=== PATIENT | male | born 1940 | race Caucasian/White ===

== ENCOUNTER 2019-11-03 03:17 | Emergency (ER) | payer OTHER, BC ==
[~2019-11-03] VITALS: Ht 190.5 cm; Wt 83.9 kg
[~2019-11-03 03:17] MED LIST: ASPIRIN EC81 M1 OR; FISH OIL PO; FISHOIL OR; GLUCOSAMINE CH1 EAC7 OR; GLUCOSAMINE HCL PO; IBUPROFEN 200200 M1 PO; LORTAB 5 MG/5001 TA1; LORTAB 5 MG/5001 TA1 PO; NIACIN 500 MG500 M1 OR; NORCO 5-325 TA1 EACH PO; THERA-M CAPLET1 EACH OR
[2019-11-03 03:18] VITALS: BP 174/74
== END 2019-11-03 04:15 | disposition home or self-care (01) ==
LOC: ER 03:17
DX: I83.891 Varicose veins of right lower extremity with other complications (principal); Z98.890 Other specified postprocedural states; Z79.899 Other long term (current) drug therapy; Z79.82 Long term (current) use of aspirin

== ENCOUNTER 2021-01-01 05:58 | Inpatient (IN) | payer OTHER, BC ==
[~2021-01-01] VITALS: Ht 188 cm; Wt 96.2 kg
--- NOTE | ~2021-01-01 | HC ---
[facility] [place] [address] CONSULTATION Name: MINGO DE OLIVEIRA Room #: 361-P ADM IN M.R.#: [id number] Admission: 01/01/21 Attend Phys: Mookie Vyas MD Discharge: Date of : 36 Report #: [id number] THIS REPORT FOR: cc: Dinh Salcedo MD, Rene P. MD Khosla, Parveen K. MD ~ DATE OF SERVICE: 01/01/2021 HISTORY OF PRESENT ILLNESS: This is an 80-year-old male patient who was evaluated by me for weakness in the right hand. This happened yesterday. Apparently, it has resolved. He also had some symptoms in the right lower extremity and that also has resolved. He had some balance issues and that he does not know how is it. In general, this patient has significantly improved. Review of systems is negative for any stroke in the past. He was one time taking an aspirin, but I do not think he has been doing it on a regular basis. He does have a history of hypertension. In the Emergency Room, it looks like he had a CT scan of the head as well as CT angiogram, which showed some disease on the left side. MRI showed that he had couple of strokes on the left side, which will correlate with his symptoms on the right side. His vessels are mostly clean. Nurses tell me that he is running some what they think is PVC. REVIEW OF SYSTEMS: A 14-point review of system was carried out in this patient and is as summarized above. PAST MEDICAL HISTORY: Negative for stroke. FAMILY HISTORY: Unremarkable. SOCIAL HISTORY: He does drink alcohol. PHYSICAL EXAMINATION: NEUROLOGIC: The patient's examination indicate that he is alert and responsive. His memory is somewhat poor, but his speech looks intact. Cranial nerve examination 2-12, I do not think shows much problem. He appeared to have recovered the deficit from the right side because he did reasonably well with strength checking on the right side. His operations manager/coordinator is good and his strength looks symmetrical and normal. His position sense is intact. Apparently, he was not able to do [id number] before, but he was able to do it when I did it. I could not look at the patient's fundus. CARDIORESPIRATORY: Examinations appear unremarkable. VITAL SIGNS: Blood pressure is 148/71, temperature is 98.4. LABORATORY DATA: CT angiography and MRI was reviewed. MRI showed pretty extensive even baseline disease. IMPRESSION AND PLAN: This patient has 2 acute cerebrovascular accidents. MRI [facility] [address] [place] [address] CONSULTATION Name: MINGO DE OLIVEIRA Room #: 361-P [facility] IN .R.#: [id number] Admission: 01/01/21 Attend Phys: Mookie Vyas MD Discharge: Date of : 36 Report #: [id number] demonstrate a pretty extensive disease. He does have some memory deficits. 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 I will check TSH and vitamin B12. I will use dual antiplatelet therapy on him because of the stroke. He is presently just on aspirin, so I will just add Plavix. He needs some extensive workup because of disease on the MRI is pretty prominent. I ordered some of the workup for tomorrow, but from neurological perspective, he should be able to go home pretty soon. He does need an echocardiogram with a bubble study and that is already ordered. Thank you very much for this referral. I spent more than 50 minutes of time taking care of this patient today and majority was spent counseling and coordinating. By: 1642 11 Morales Abdi MD /nt
[2021-01-01 06:03] VITALS: BP 198/127
[2021-01-01 06:31] LABS: ABSOLUTE NEUTROPHILS 2.9 thou/uL (1.4-8.2); EOSINOPHILS 4.5 % (0.0-3.0); HEMATOCRIT 41.4 % (42.0-52.0); HEMOGLOBIN 14.3 gm/dL (14.0-18.0); LYMPHOCYTES 35.4 % (24.0-44.0); MCH 34.3 pg (26.0-34.0); MCHC 34.6 g/dL (28.0-37.0); MCV 99.2 fL (80.0-100.0); MONOCYTES 9.9 % (1.0-8.0); PLATELET COUNT 145 thou/uL (150-400); POLYS 49.2 % (36.0-66.0); RBC 4.18 mil/uL (4.50-6.00); RDW 12.7 % (10.5-14.5)
[2021-01-01 06:42] LABS: CALCIUM 8.8 mg/dL (8.5-10.1); CREATININE 0.9 mg/dL (0.7-1.3)
[2021-01-01 06:52] LABS: ALBUMIN 3.7 g/dL (3.4-5.0); TOTAL BILIRUBIN 0.7 mg/dL (0.2-1.0); TOTAL PROTEIN 6.2 g/dL (6.4-8.2)
[2021-01-01 06:54] LABS: APTT 28.8 Seconds (24.5-32.8); INR 1.02; PROTIME 11.1 Seconds (10.5-12.1)
--- NOTE | 2021-01-01 07:08 | EKG ---
[address] [place] [address] [facility] [place] [address] ELECTROCARDIOGRAM REPORT Name: MINGO DE OLIVEIRA Room #: REG JOSSY Ramirez#: [id number] Admission: 01/01/21 Attend Phys: Discharge: Date of : 36 Report #: [id number] [facility] ED Test Date: 2021-01-01 Test Time: 06:11:57 Pat Name: MINGO DE OLIVEIRA Department: Room: Gender: M Occupational Therapist'S Assistant: RICCO : 1940 Requested By: Alexi Alexis Order Number: [id number] MD: Sourav Pedro Measurements Intervals [place] Rate: 56 P: 65 MO: 213 QRS: -40 QRSD: 109 T: 44 QT: 471 QTc: 455 Interpretive Statements Sinus rhythm Borderline prolonged MO interval Consider left atrial enlargement Baseline wander in lead(s) V1 Compared to ECG 02/13/2016 07:42:31 Sinus bradycardia no longer present Electronically Signed On 01-01-2021 7:08:41 CDT by Sourav Pedro [email or web address] <ELECTRONICALLY SIGNED> By: Sourav Pedro MD, [facility] 01/01/21 0708 0 0 Sourav Pedro MD, FACC /EPI
--- NOTE | 2021-01-01 07:09 | EKG ---
[address] [place] [employer] [address] ELECTROCARDIOGRAM REPORT Name: MINGO DE OLIVEIRA Room #: REG JOSSY Ramirez#: [id number] Admission: 01/01/21 Attend Phys: Discharge: Date of : 36 Report #: [id number] [facility] ED Test Date: 2021-01-01 Test Time: 06:30:29 Pat Name: MINGO DE OLIVEIRA Department: Room: Gender: M Fitness Trainer: peyton : 1940 Requested By: Alexi Alexis Order Number: [id number] MD: Sourav Pedro Measurements Intervals [place] Rate: 59 P: 66 AL: 216 QRS: -40 QRSD: 106 T: 55 QT: 425 QTc: 421 Interpretive Statements Sinus rhythm Atrial premature complexes Borderline prolonged AL interval Left anterior fascicular block Abnormal R-wave progression, early transition Baseline wander in lead(s) V6 Compared to ECG 01/01/2021 06:11:57 Atrial premature complex(es) now present Myocardial infarct finding no longer present Electronically Signed On 01-01-2021 7:08:47 CDT by Sourav Pedro [email or web address] <ELECTRONICALLY SIGNED> By: Sourav Pedro MD, FACC 01/01/21 0708 9 9 Sourav Pedro MD, FAC /EPI
--- NOTE | 2021-01-01 07:15 | NUR ---
TOOK OVER CARE FROM KOFI ALBRIGHT AT THIS TIME
[2021-01-01 10:43] VITALS: BP 152/75
--- NOTE | 2021-01-01 10:44 | NUR ---
HANDOFF TOOL SENT AT THIS TIME
[2021-01-01 11:00] VITALS: BP 163/82
[2021-01-01 11:02] VITALS: BP 142/61
--- NOTE | 2021-01-01 12:05 | NUR ---
ADMIT: PT ARRIVED TO UNIT APPROX 1100 VIA WC FROM ER. PT A&OX4, STANDS INDEPENDENTLY, GAIT SLIGHTLY UNSTABLE. PT ABLE TO ANSWER ALL QUESTIONS APPROPRIATELY, MRI QUESTIONS ANSWERED AND RECORDED. ST IN TO EVAL PT SWALLOWING. DEFICITS OBSERVED BY THIS RN: R HAND WRITING ABILITY & POSSIBLE SPEECH SLUR AT TIMES. CONCERN FOR SLIGHT SPEECH SLUR RELAYED TO ST. WILL CONTINUE POC AND CONTACT PHYSICIAN NEEDED.
[2021-01-01] MEDS ORDERED: SUPER THERAVIT1 EACH PO (13:23)
[2021-01-01] MEDS ORDERED: NIACIN50 MG PO (13:24)
[2021-01-01] MEDS ORDERED: VITAMIN C500 M1 PO (13:24)
[2021-01-01] MEDS ORDERED: GLUCOSAMINE1000 MG PO (13:25)
[2021-01-01 16:00] VITALS: BP 148/71
[2021-01-01 19:22] VITALS: BP 137/69
--- NOTE | 2021-01-02 00:47 | NUR ---
PT WATCHING TV VISITED WITH FRIEND. [facility]. PT PROVIDED HS SNACK. INDEP WITH ADLS. CALLS FOR ASSIST.
[2021-01-02 01:06] LABS: GLYCOHEMOGLOBIN (HGB A1C) 5.5 % (4.8-5.6)
[2021-01-02 04:57] VITALS: BP 139/73
[2021-01-02 06:22] LABS: CHOLESTEROL 119 mg/dL (<200); HDL CHOLESTEROL 31 mg/dL (>40); LDL CHOLESTEROL 63 mg/dL (<100); TC:HDL 3.8 Ratio (Not establshd); TRIGLYCERIDE 128 mg/dL (<150); VLDL 26 mg/dL (<40)
[2021-01-02 06:30] LABS: SERUM ASSESSMENT Clear
[2021-01-02 07:57] VITALS: BP 164/76
--- NOTE | 2021-01-02 09:21 | TEE ---
[facility] [place] [address] TRANSESOPHAGEAL ECHOCARDIOGRAM Name: MINGO DE OLIVEIRA Room #: 361-P ADM IN M.R.#: [id number] Admission: 01/01/21 Attend Phys: Mookie Vyas MD Discharge: Date of : 36 Report #: [id number] THIS REPORT FOR: cc: Dinh Salcedo MD, Rene P. MD Santiago, Patrick MD [facility] ~ APPROVED REPORT Study performed: 01/02/2021 08:23:03 EXAM: Comprehensive 2D, Doppler, and color-flow Echocardiogram Patient Location: In-Patient Room #: 361 Status: routine BSA: 2.23 HR: 75 bpm BP: 107/59 mmHg Rhythm: NSR Other Information Study Quality: Good Indications CVA/TIA Echo Enhancing Agent Indication: Rule out Shunt Agent(s) / Amount(s) Used: Agitated Saline 7 cc Procedure After obtaining informed consent, patient underwent transesophageal echo in the [employer]. Type of Sedation : Conscious Sedation Sedation was administered by Soraya Ahumada RN. Sedation start time: 829 Case end Time: 834 Sedation was achieved intravenously with: Versed (3.5 mg) Fentanyl (50 mcg) Transesophageal probe was inserted and advanced into esophagus without difficulty by Sourav Pedro MD. Echo enhancement indication: R/O Septal defect. Echo enhancement agent administered: Agitated Saline The JAIRO was performed without complications. Throughout the procedure, the blood pressure, pulse oximetry, cardiac [facility] [address] [place] [address] TRANSESOPHAGEAL ECHOCARDIOGRAM Name: MINGO DE OLIVEIRA Room #: 361-P ADM IN M.R.#: [id number] Admission: 01/01/21 Attend Phys: Toshia Morrow Discharge: Date of : 38 Report #: [id number] rhythm, and rate were monitored. The patient tolerated the procedure without adverse effects. Recovery from conscious sedation was uneventful and vital signs were stable. Left Ventricle The left ventricle is normal size. There is normal left ventricular wall thickness. The left ventricular systolic function is normal. The left ventricular ejection fraction is within the normal range. LVEF is 55-60%. Right Ventricle The right ventricle is normal size. The right ventricular systolic function is normal. Atria Left atrium is at the upper limits of normal. No thrombus is visualized in the left atrium or appendage. Interatrial septum is intact without evidence of ASD or PFO. Right atrium is at the upper limits of normal. Aortic Valve The aortic valve is normal in structure. The Aortic valve is sclerotic. Mild aortic regurgitation. There is no aortic valvular stenosis. Mitral Valve The mitral valve is normal in structure. Mild mitral regurgitation. No evidence of mitral valve stenosis. Tricuspid Valve The tricuspid valve is normal in structure. There is no tricuspid valve regurgitation noted. Pulmonic Valve The pulmonary valve is normal in structure. There is no pulmonic valvular regurgitation. Great Vessels The aortic root is normal in size. Pericardium There is no pericardial effusion. <Conclusion> Consent was obtained [facility] [place] [address] TRANSESOPHAGEAL ECHOCARDIOGRAM Name: MINGO DE OLIVEIRA Room #: 361-P ADM IN M.R.#: [id number] Admission: 01/01/21 Attend Phys: Toshia Morrow Discharge: Date of : 36 Report #: [id number] Timeout performed After appropriate sedation esophageal probe was advanced without difficulty Left atrial appendage, small no clot detected Normal atrial size Normal left ventricular size/wall thickness Ejection fraction 60% Normal right ventricle size/function Mild mitral/aortic valve insufficiency No tricuspid valve insufficiency No evidence of ASD/VSD by color-flow Doppler study Normal aortic root size Minimal calcification throughout the aorta Patient tolerated procedure well <ELECTRONICALLY SIGNED> By: Sourav Pedro MD, FACC 01/02/21920 0 0 Sourav Pedro MD, FACC /INF
[2021-01-02 10:20] VITALS: BP 145/74
[2021-01-02 12:08] VITALS: BP 146/81
--- NOTE | 2021-01-02 15:12 | NUR ---
OT/PT HAS SEEN PATIENT THIS DATE FOR EVALUATION AND THIS INFORMATION WAS REVIEWED BY DR. ZARCO. PATIENT SHOULD BE ABLE TO RETURN HOME WITH HOME HEALTH/OUT PATIENT SERVICES. DR. ZARCO WOULD LIKE TO SEE THERAPY WORK ON STAIRS AND ASSISTIVE DEVICE USE IF NEEDED. D/C CALCULATING MACHINE MECHANIC INFORMED.
[2021-01-02 15:16] VITALS: BP 156/66
[2021-01-02 19:33] VITALS: BP 145/68
--- NOTE | 2021-01-03 03:28 | NUR ---
ASSESSED AT START OF SHIFT 1900. PT RESTING IN BED. UP WITH SBA TO THE BATHROOM. DENIES PAIN. N/V. NIH SCALE SCORE IS 1 DUE TO SLIGHT FACIAL DROP ON THE LEFT SIDE. FALL PREC IN PLACE AND CALL LIGHT AT [facility] WILL CONT TO MONITOR
[2021-01-03 04:14] VITALS: BP 171/78
[2021-01-03 07:44] VITALS: BP 155/68
[2021-01-03 09:08] LABS: ANA INTERPRETATION Negative (Negative)
[2021-01-03 11:38] VITALS: BP 154/69
[2021-01-03] MEDS ORDERED: LIPITOR 20 MG T20 M1 PO (11:49)
[2021-01-03] MEDS ORDERED: ADULT LOW DOSE81 MG PO (11:49)
[2021-01-03] MEDS ORDERED: CLOPIDOGREL75 MG PO (11:49)
[2021-01-03 13:49] VITALS: BP 154/69
--- NOTE | 2021-01-03 14:02 | NUR ---
INITIAL ASSESSMENT/DISCHARGE NOTE: Received consult for discharge planning. SW reviewed chart and spoke with nursing and attending physician. Pt was admitted from home due to new CVA. 5N consulted. Pt is too high level for admission to inpt acute rehab. Recommendation made for pt to discharge home with HH services. Pt is medically stable for discharge home today. LIAT met with pt and spouse at bedside. Introduced role of SW. Pt is alert/orientated x 4. Pt and spouse live at home. Prior to admission, pt was independent with ADLs. No use of DME. No hx of HH services or post-acute placement. Pt's PCP is Dr. Salcedo. SW provided list of HH agencies for review. No preference voiced. SW confirmed pt's home address and phone number. SW faxed referral to [facility]. Notified HH liaison. Confirmed info was received. [facility] is able to accept pt on service. Contact info for HH placed in pt's discharge summary. Pt's family will provide transportation home. No additional SW needs identified at this time, but is available to assist should needs arise.
[2021-01-03] MEDS ORDERED: NORVASC5 MG PO (15:19)
[2021-01-03 19:07] LABS: SYPHILIS AB Non Reactive (Non Reactive)
--- NOTE | 2021-01-03 20:01 | NUR ---
RN ASSUMED PT'S CARE AT 0700-1600PM, PT IS A&OX4, PT'S WEALNESS HAS IMPROVED, PT'S VS ARE STABLE, RN RECEIVED ORDER TO DC PT TO HOME WITH HOME HEALTH , PT AND PT'S UNDERSTAND DC TEACHING WELL, PT'S ADMINISTRATIVE ANALYST PT TO HOME AT 1600PM.
== END 2021-01-03 16:53 | disposition home health service (06) | DRG 65 ==
LOC: ER 05:58 → EROBS 09:15 → 3W 09:15
PROVIDERS: Emergency Medicine; Physician Assistant; Psychiatry & Neurology Neuromuscular Medicine; ADMIT Hospitalist; ATTEND Hospitalist
PROC: B24BZZ4 Ultrasonography of Heart with Aorta, Transesophageal (ICD-10-PCS; principal; 2021-01-02)
DX: I63.9 Cerebral infarction, unspecified (principal); G81.91 Hemiplegia, unspecified affecting right dominant side; I10 Essential (primary) hypertension; R41.89 Other symptoms and signs involving cognitive functions and awareness; E78.5 Hyperlipidemia, unspecified; Z20.822 Contact with and (suspected) exposure to COVID-19; Z98.49 Cataract extraction status, unspecified eye; Z79.82 Long term (current) use of aspirin; Z79.899 Other long term (current) drug therapy
CPT/HCPCS: 10879

== ENCOUNTER → 2021-01-29 | Outpatient (CLI) | payer OTHER, BC ==
[~2021-01-29] MED LIST changes: +ADULT LOW DOSE81 MG PO; +CLOPIDOGREL75 MG PO; +GLUCOSAMINE1000 MG PO; +LIPITOR 20 MG T20 M1 PO; +NIACIN50 MG PO; +NORVASC5 MG PO; +SUPER THERAVIT1 EACH PO; +VITAMIN C500 M1 PO
== END ==
LOC: SJCVC 12:47
PROVIDERS: ATTEND Internal Medicine
DX: I69.328 Other speech and language deficits following cerebral infarction (principal); E78.00 Pure hypercholesterolemia, unspecified; I10 Essential (primary) hypertension; Z72.89 Other problems related to lifestyle; Z79.82 Long term (current) use of aspirin; Z79.899 Other long term (current) drug therapy